=== PATIENT | female | born 1950 | race Caucasian/White ===

== ENCOUNTER 2017-07-31 09:24 | Outpatient (CLI) | payer MEDICARE ==
--- NOTE | 2017-07-31 10:11 | Ultrasound Report ---
RIGHT UPPER QUADRANT ULTRASOUND: 07/31/2017 CLINICAL INDICATION: Abnormal LFTs. TECHNIQUE: Real-time scanning was performed with site safety representative static images obtained. FINDINGS: The liver measures 17.3 cm. Hepatic echotexture is diffusely increased, compatible with fa tty infiltration. No focal parenchymal lesion or intrahepatic biliary dilatation is present. The comm on bile duct measures 6 mm. The gallbladder is surgically absent. The right kidney measures 10.8 cm, and demonstrates no hydronephrosis. No free fluid is present. IMPRESSION: ECHOGENIC LIVER, COMPATIBLE WITH FATTY INFILTRATION. NO EVIDENCE OF BILIARY OBSTRUCTION. JOB #: [id number] EXT JOB #:[id number]
== END 2017-07-31 09:25 | disposition home or self-care (01) ==
LOC: DI 09:24
PROVIDERS: ATTEND Physician Assistant
DX: R94.5 Abnormal results of liver function studies (principal)
CPT/HCPCS: 76705

== ENCOUNTER 2021-10-19 18:21 | Outpatient (CLI) | payer MEDICARE ==
--- NOTE | 2021-10-20 11:41 | Ultrasound Report ---
PROCEDURE: Abdomen Complete INDICATIONS: rlq pain TECHNIQUE: Real-time scanning was performed of the abdominal and retroperitoneal organs, with image documentatio n. COMPARISON: None. FINDINGS: Liver: Liver is suboptimally visualized due to patient body habitus and bowel gas. Liver is normal i n size and homogeneous in echotexture where visualized. Liver is echogenic where visualized. No focal hepatic mass lesions identified. Gallbladder: Surgically absent. Biliary ducts: Intrahepatic bile ducts are non-dilated. Extrahepatic bile duct caliber measures 5.7 mm. Normal is 6-7 mm or less in diameter, or 10 mm or less post-cholecystectomy. Pancreas: Not visualized due to bowel gas and cannot be evaluated. Spleen: Spleen is normal in size and homogeneous in echotexture. Kidneys: Kidneys are normal in size and echotexture. Right kidney measures 11.3 cm long; left kidne y measures 11.7 cm long. No hydronephrosis or nephrolithiasis. Small punctate echogenic foci noted i n the kidneys most concerning for vascular calcifications. No solid masses. Aorta: Visualized aorta is normal in caliber at less than 3 cm. Iliacs: Proximal common iliac arteries are normal in caliber at less than 2.5 cm. IVC: Intrahepatic inferior vena cava is patent. Miscellaneous: No free abdominal fluid. IMPRESSION: 1. Image quality severely limited secondary to patient body habitus and bowel gas. 2. Echogenic liver. Finding typically represents fatty infiltration, but finding is nonspecific and o ther etiologies including hepatic cirrhosis can produce similar appearance. Recommend correlation wit h clinical and laboratory data. 3. Status post cholecystectomy. 4. No hydronephrosis. Reviewed by: Treva Whittington MD, PhD on 10/20/2021 11:40 AM PST Approved by: Treva Whittington MD, PhD on 10/20/2021 11:40 AM PST Station ID: [id number]
== END 2021-10-19 18:22 | disposition home or self-care (01) ==
LOC: DI 18:21
PROVIDERS: ATTEND Naturopath
DX: R10.31 Right lower quadrant pain (principal); Z90.49 Acquired absence of other specified parts of digestive tract

== ENCOUNTER 2022-07-20 09:45 | Outpatient (CLI) | payer MEDICARE ==
--- NOTE | 2022-07-20 17:12 | Ultrasound Report ---
PROCEDURE: Pelvic w/Transvaginal INDICATIONS: RIGHT PELVIC PAIN TECHNIQUE: Real-time scanning was performed of the pelvic organs, with image documentation. Additional endovagi nal scanning was necessary due to incomplete visualization of the adnexal and endometrial structures by transabdominal scanning. COMPARISON: None. FINDINGS: Uterus: Uterus is anteverted and normal in size at 7.0 x 3.9 x 5.7 cm. The myometrium is heterogene ous. The endometrium measures 2.7 mm in combined thickness. There is a right midline intramural fib roid which measures 1.1 x 0.8 x 1.2 cm and a midline posterior subserosal fibroid which measures 1.5 x 1.1 x 1.3 cm. Ovaries: The right ovary measures 1.7 x 1.2 x 1.6 cm, with a calculated ovarian volume of 1.8 cc. T he left ovary measures 2.4 x 1.3 x 1.3 cm, with a calculated ovarian volume of 2 cc. The ovaries hav e a normal sonographic appearance. Less than 12 follicles can be seen in each ovary. No adnexal mas ses are seen. A 4 mm left ovarian calcification is noted. Other: No pathologic free abdominal or pelvic fluid. IMPRESSION: 1. Fibroid uterus. 2. No discrete findings to explain right pelvic pain. Reviewed by: Jesusita Metz MD on 07/20/2022 5:10 PM PDT Approved by: Jesusita Metz MD on 07/20/2022 5:10 PM PDT Station ID: [id number]
== END 2022-07-20 09:46 | disposition home or self-care (01) ==
LOC: DI 09:45
PROVIDERS: ATTEND Physician Assistant
DX: R10.2 Pelvic and perineal pain (principal); D25.1 Intramural leiomyoma of uterus